=== PATIENT | male | born 1995 | race African-American/Black ===

== ENCOUNTER 2019-05-06 12:27 | Emergency (ER) | payer SELFPAY ==
[2019-05-06 12:40] VITALS: TEMP 98.4; BMI 17.7
[2019-05-06] MEDS ORDERED: SODIUM CHLORIDE 1,000 ML IV STA ×2 (12:41→15:19)
--- NOTE | 2019-05-06 12:41 | PDOC ---
Rapid Medical Evaluation Time Seen by Provider: 05/06/19 12:37 Medical Evaluation: Allergies Allergy/AdvReac Type Severity Reaction Status Date / Time No Known Allergies Allergy Verified 05/06/19 12:36 05/06/19 12:37 I have performed a brief in-person evaluation of this patient. The patient presents with a chief complaint of: b/l arm pain Pertinent physical exam findings: b/l biceps tenderness. Left axillary lymphadenopathy. I have ordered the following: labs, urine The patient will proceed to the ED for further evaluation. 05/06/19 12:40 Discharge Disposition - Diagnosis Arm pain - Referrals - Patient Instructions - Post Discharge Activity
[2019-05-06 13:35] LABS: PH,URINE 5.5 (5.0-8.0); URINE APPEARANCE CLEAR; URINE BILIRUBIN NEGATIVE (NEGATIVE); URINE COLOR YELLOW; URINE GLUCOSE (UA) NEGATIVE (NEGATIVE); URINE KETONE TRACE (NEGATIVE); URINE LEUK ESTERASE NEGATIVE (NEGATIVE); URINE NITRITE NEGATIVE (NEGATIVE); URINE PROTEIN NEGATIVE (NEGATIVE)
[2019-05-06] MEDS ORDERED: KETOROLAC TROMETHAMINE 15 MG/ML VIAL IVPUSH ONE (14:02)
[2019-05-06] MEDS ORDERED: KETOROLAC TROMETHAMINE 15 MG/ML VIAL ONE (14:14)
[2019-05-06 14:24] LABS: BASO % 0.2 % (0-2.0); EOS % 0.7 % (0-4.5); HEMATOCRIT 45.1 % (35.4-49); HEMOGLOBIN 14.9 GM/dL (11.7-16.9); LYMPH % 9.5 % (8-40); MCH 29.7 pg (25.7-33.7); MCHC 33.2 g/dl (32.0-35.9); MEAN CELL VOLUME 89.5 fl (80-96); MONO % 9.6 % (3.8-10.2); PLATELET COUNT 190 K/MM3 (134-434); RBC 5.04 M/mm3 (4.00-5.60); RDW 14.4 % (11.9-15.9); WHITE BLOOD COUNT 11.3 K/mm3 (4.0-10.0)
[2019-05-06 15:05] LABS: ALBUMIN 4.8 g/dl (3.4-5.0); BILIRUBIN,TOTAL 0.6 mg/dL (0.2-1); BLOOD UREA NITROGEN 16.4 mg/dL (7-18); CALCIUM 9.6 mg/dL (8.5-10.1); CREATININE 1.2 mg/dL (0.55-1.3); POTASSIUM 4.6 mmol/L (3.5-5.1); TOT PROT 8.2 g/dl (6.4-8.2)
--- NOTE | 2019-05-06 15:15 | PDOC ---
History of Present Illness - General Chief Complaint: Pain, Acute Stated Complaint: ARMPIT LUMPS Time Seen by Provider: 05/06/19 12:37 History Source: Patient Exam Limitations: No Limitations Past History - Travel Traveled outside of the country in the last 30 days: No Close contact w/someone who was outside of country & ill: No - Past Medical History Allergies/Adverse Reactions: Allergies Allergy/AdvReac Type Severity Reaction Status Date / Time No Known Allergies Allergy Verified 05/06/19 12:36 Home Medications: Ambulatory Orders Cephalexin Monohydrate [Keflex -] 500 mg PO BID #14 capsule 05/06/19 Ibuprofen 600 mg PO Q6H #30 tablet 05/06/19 Sulfamethoxazole/Trimethoprim [Bactrim Ds -] 1 tab PO BID #14 tablet 05/06/19 Asthma: Yes COPD: No - Immunization History Immunization Up to Date: No - Suicide/Smoking/Psychosocial Hx Smoking History: Current some day smoker Have you smoked in the past 12 months: No Number of Cigarettes Smoked Daily: 4 Information on smoking cessation initiated: No Hx Alcohol Use: No Drug/Substance Use Hx: No Substance Use Type: None Review of Systems - Review of Systems Able to Perform ROS?: Yes Comments:: 05/06/19 15:38 CONSTITUTIONAL: Present: body aches Absent: fever, chills, diaphoresis, generalized weakness, malaise, loss of appetite HEENT: Absent: rhinorrhea, nasal congestion, throat pain, throat swelling, difficulty swallowing, mouth swelling, ear pain, eye pain, visual Changes CARDIOVASCULAR: Absent: chest pain, loss of consciousness, palpitations, irregular heart rate, peripheral edema RESPIRATORY: Absent: cough, shortness of breath, dyspnea with exertion, orthopnea, wheezing, stridor, hemoptysis GASTROINTESTINAL: Absent: abdominal pain, abdominal distension, nausea, vomiting, diarrhea, constipation, melena, hematochezia GENITOURINARY: Absent: dysuria, frequency, urgency, hesitancy, hematuria, flank pain, genital pain MUSCULOSKELETAL: Absent: myalgia, arthralgia, joint swelling SKIN: Present: "bumps under arm" Absent: rash, itching, pallor HEMATOLOGIC/IMMUNOLOGIC: Absent: easy bleeding, easy bruising, lymphadenopathy, frequent infections ENDOCRINE: Absent: unexplained weight gain, unexplained weight loss, heat intolerance, cold intolerance NEUROLOGIC: Absent: headache, focal weakness or paresthesias, dizziness, unsteady gait, seizure, mental status changes, bladder or bowel incontinence PSYCHIATRIC: Absent: anxiety, depression, suicidal or homicidal ideation, hallucinations. Is the patient limited Bengali proficient: No *Physical Exam - Vital Signs Last Vital Signs Temp Pulse Resp BP Pulse Ox 98.4 F 84 18 137/84 100 05/06/19 12:37 05/06/19 12:37 05/06/19 12:37 05/06/19 12:37 05/06/19 12:37 - Physical Exam Comments: 05/06/19 15:40 GENERAL: Well developed, well nourished. Awake and alert. No acute distress. HEENT: Normocephalic, atraumatic. PERRLA, EOMI. No conjunctival pallor. Sclera are non- icteric. Moist mucous membranes. Oropharynx is clear. NECK: Supple. Full ROM. No JVD. Carotid pulses 2+ and symmetric, without bruits. No thyromegaly. No lymphadenopathy. MUSCULOSKELETAL Normal range of motion at all joints. No bony deformities or tenderness. No CVA tenderness. EXTREMITIES: No cyanosis. No clubbing. No edema. No calf tenderness. SKIN: Hard 0.5cm indurated areas to the axilla b/l with no overlying cellulitis. Warm and dry. Normal capillary refill. No rashes. No jaundice. NEUROLOGICAL: Alert, awake, appropriate. Cranial nerves 2-12 intact. No deficits to light touch and temperature in face, upper extremities and lower extremities. No motor deficits in the in face, upper extremities and lower extremities. Normoreflexic in the upper and lower extremities. Normal speech. Toes are down- going bilaterally. Gait is normal without ataxia. PSYCHIATRIC: Cooperative. Good eye contact. Appropriate mood and affect. ED Treatment Course - LABORATORY CBC & Chemistry Diagram: 05/06/19 13:00 05/06/19 13:00 - ADDITIONAL ORDERS Additional order review: Laboratory Results 05/06/19 05/06/19 05/06/19 13:00 13:00 13:00 Sodium 137 Potassium 4.6 Chloride 105 Carbon Dioxide 25 Anion Gap 7 L BUN 16.4 Creatinine 1.2 Est GFR (CKD-EPI)AfAm 96.15 Est GFR (CKD-EPI)NonAf 82.96 Random Glucose 89 Calcium 9.6 Total Bilirubin 0.6 AST 35 ALT 24 Alkaline Phosphatase 78 Creatine Kinase 406 H Creatine Kinase Index 0.3 CK-MB (CK-2) 1.3 Total Protein 8.2 Albumin 4.8 Urine Color Yellow Urine Appearance Clear Urine pH 5.5 Ur Specific [place] 1.026 Urine Protein Negative Urine Glucose (UA) Negative Urine Ketones Trace H Urine Blood Negative Urine Nitrite Negative Urine Bilirubin Negative Urine Urobilinogen 1.0 Ur Leukocyte Esterase Negative 05/06/19 13:00 RBC 5.04 MCV 89.5 MCHC 33.2 RDW 14.4 MPV 9.0 Neutrophils % 80.0 Lymphocytes % 9.5 Monocytes % 9.6 Eosinophils % 0.7 Basophils % 0.2 - Medications Given in the ED: ED Medications Discontinued Medications Generic Name Dose Route Start Last Admin Trade Name Svetlana PRN Reason Stop Dose Admin Sodium Chloride 1,000 mls @ 1,000 mls/hr 05/06/19 12:41 05/06/19 14:06 Normal Saline - IV 05/06/19 13:40 1,000 mls/hr ASDIR STA Administration Ketorolac Tromethamine 15 mg 05/06/19 14:02 05/06/19 14:11 Toradol Injection - IVPUSH 05/06/19 14:03 15 mg ONCE ONE Administration Medical Decision Making - Medical Decision Making 05/06/19 15:44 The patient is a 24-year-old male with no past medical history who presents to the ER today for painful lumps to his under arms. He states that he noticed them starting last night and they got worse this morning. He states they're painful to touch. He also notes he was playing basketball yesterday when he noticed the pain. States he also has pain to his biceps bilaterally. Denies fevers, chills,lightheadedness, dizziness, nausea, vomiting, diarrhea, frequency urgency and hematuria. A/P:Cellulitis On exam, patient with bilateral 0.5 cm indurated areas without fluctuance or overlying cellulitis. Very superficial. Does not appear to be lymph nodes. Given muscle cramps andthe fact that he was playing outside yesterday we will do a rhabdo workup CK is 400 at this time. Patient given 2 L of fluids.No proteinuria Toradol given with relief of symptoms. WBC count 11.2. We will treat this as a cellulitis with Bactrim and Keflex. Patient told to return in 2 days for wound check. I discussed the physical exam findings, ancillary test results and final diagnoses with the patient. I answered all of the patient's questions. The patient was satisfied with the care received and felt comfortable with the discharge plan and treatment plan. The Patient agrees to follow up with the primary care physician/specialist within 24-72 hours. Return precautions were given. *DC/Admit/Observation/Transfer Diagnosis at time of Disposition: Cellulitis Qualifiers: Site of cellulitis: extremity Site of cellulitis of extremity: axilla Laterality: unspecified laterality Qualified Code(s): L03.119 - Cellulitis of unspecified part of limb - Discharge Dispostion Disposition: HOME Condition at time of disposition: Stable Decision to Admit order: No - Referrals Referrals: Herminio Vidales MD [Staff Physician] - - Patient Instructions Printed Discharge Instructions: DI for Cellulitis -- Adult Additional Instructions: You have cellulitis. This is a skin infection. Please take the Bactrim and Keflex twice a day for one week. Please take all the antibiotics even if you feel better. You may use warm water soaks to the area. Please do this approximately 4-5 times a day. Please avoid shaving the skin around the area of redness. You may take Tylenol or Motrin as needed for pain. Please follow up with your primary care doctor in 1 week. Return to the emergency department if you have worsening redness, fevers, increasing pain, or have any changes in your symptoms. - Post Discharge Activity Forms/Work/School Notes: Back to Work
[2019-05-06 16:47] VITALS: BP 112/63; PULSE 74
== END 2019-05-06 16:15 | disposition home or self-care (01) ==
LOC: JER 12:27 → JERFT 12:27 → JER 16:15
PROC: 3E0337Z Introduction of Electrolytic and Water Balance Substance into Peripheral Vein, Percutaneous Approach (ICD-10-PCS; principal; 2019-05-06)
PROC: 3E0333Z Introduction of Anti-inflammatory into Peripheral Vein, Percutaneous Approach (ICD-10-PCS; 2019-05-06)
DX: L03.112 Cellulitis of left axilla (principal); L03.111 Cellulitis of right axilla
CPT/HCPCS: 36415; 80053; 81003; 82550; 82553; 85025; 87086; 99282-25; J7030